=== PATIENT | female | born 1945 | race Caucasian/White ===

== ENCOUNTER → 2016-09-24 | Outpatient (CLI) | payer MEDICARE | END | disposition home or self-care (01) | LOC: GMAJ 10:32 | PROVIDERS: ATTEND Family Medicine | DX: E03.9 Hypothyroidism, unspecified (principal) ==

== ENCOUNTER 2016-11-23 06:01 | Emergency (ER) | payer MEDICARE ==
[2016-11-23 06:10] VITALS: TEMP 98.1
--- NOTE | 2016-11-23 06:38 | ED.PDOC ---
History of Present Illness - General Source: patient Exam Limitations: no limitations - History of Present Illness Initial Comments: Ms. Aylin Pearson 71 y/o female stated while in bed this am just woke up she experienced dizziness felt her bed spinning around no tinnitus but with left earache.Has history of cad.No blurry vision.No history of head injury. Stated had shingles in the past. Timing/Duration: 1-3 hours Severity: moderate Improving Factors: nothing Worsening Factors: nothing Associated Symptoms: denies symptoms, other - felt nauseated but no throwing up <Jose C Tyson R - Last Filed: 11/23/16 06:35> <Jose Quiroz - Last Filed: 11/23/16 07:55> - General Chief Complaint: ENT Problem Stated Complaint: dizziness, nausea, left earache Time Seen by Provider: 11/23/16 06:35 - History of Present Illness Allergies/Adverse Reactions: Allergies Codeine Allergy (Verified 11/23/16 06:10) Meperidine [From Demerol HCl] Allergy (Verified 11/23/16 06:10) Morphine Allergy (Verified 11/23/16 06:10) Pt states "Causes me breathing problems" Propoxyphene [From Darvocet-N] Allergy (Verified 11/23/16 06:10) Home Medications: Ambulatory Orders Aspirin [Baby Aspirin] 81 mg PO QD 05/14/14 Atorvastatin Calcium [Lipitor] 40 mg PO BEDTIME 05/14/14 Clopidogrel Bisulfate [Plavix] 75 mg PO QD 05/14/14 Furosemide [Lasix] 20 mg PO DAILY 05/14/14 Levothyroxine Sodium [Synthroid] 88 mcg PO DAILY 05/14/14 Lisinopril 10 mg PO DAILY 05/14/14 Potassium Chloride [K-Tab] 20 meq PO BID 05/14/14 Meclizine HCl 25 mg PO Q6H PRN #30 tab 11/23/16 Ondansetron [Zofran Odt] 4 mg PO Q4H PRN #10 tab 11/23/16 predniSONE [Prednisone] 20 mg PO DAILY #3 tab 11/23/16 Review of Systems - Review of Systems Constitutional: States: no symptoms reported EENTM: States: see HPI, ear pain - left Respiratory: States: no symptoms reported Cardiology: States: no symptoms reported Gastrointestinal/Abdominal: States: no symptoms reported Genitourinary: States: no symptoms reported Musculoskeletal: States: no symptoms reported Skin: States: no symptoms reported Neurological: States: other - dizziness Endocrine: States: no symptoms reported Hematologic/Lymphatic: States: no symptoms reported <Jose C Tyson R - Last Filed: 11/23/16 06:35> Past Medical History (General) - Patient Medical History Hx Seizures: No Hx Stroke: No Hx Dementia: No Hx Asthma: No Hx of COPD: No Hx Cardiac Disorders: Yes Hx Congestive Heart Failure: No Hx Pacemaker: No Hx Hypertension: Yes Hx Thyroid Disease: Yes Hx Diabetes: No Hx Gastroesophageal Reflux: No Hx Renal Disease: No Hx Cancer: No Hx of HIV: No Hx Hepatitis C: No Hx MRSA: No Surgical History: cholecystectomy, other - hysterectomy,back,knee - Vaccination History Hx Tetanus, Diphtheria Vaccination: No Hx Influenza Vaccination: Yes Hx Pneumococcal Vaccination: Yes Immunizations Up to Date: No - Social History Hx Tobacco Use: No Hx Chewing Tobacco Use: No Hx Alcohol Use: No Hx Substance Use: No Hx Substance Use Treatment: No Hx Depression: No Feels Threatened In Home Enviroment: No Feels Threatened In a Relationship: No Hx Physical Abuse: No Hx Emotional Abuse: No Hx Suspected Abuse: No - Activities of Daily Living Patient Lives Alone: No - Grooming Ability: Independent Eating (Feeding) Ability: Independent Toileting Ability: Independent - Female History Patient is a Female of Child Bearing Age (10 -59 yrs old): No Patient : No <Jose C Tyson R - Last Filed: 11/23/16 06:35> Family Medical History - Family History Father Family History: Unknown Hx Cardiac Disease: Yes - dad-mi 81 y/o <Jose C Tyson R - Last Filed: 11/23/16 06:35> Physical Exam - Physical Exam General Appearance: Alert, No apparent distress, Other - speech fluent Eye Exam: bilateral normal Ears, Nose, Throat: hearing grossly normal, normal ENT inspection, normal pharynx Neck: non-tender, full range of motion, supple, normal inspection, other - no carotid bruits Respiratory: chest non-tender, lungs clear, normal breath sounds Cardiovascular/Chest: normal peripheral pulses, regular rate, rhythm, no edema, no gallop, no JVD, no murmur Peripheral Pulses: radial,right: 2+, radial,left: 2+ Gastrointestinal/Abdominal: normal bowel sounds, non tender, soft, no organomegaly Back Exam: normal inspection, no CVA tenderness, no vertebral tenderness Extremity: normal range of motion, non-tender, normal inspection, no calf tenderness Neurologic: no motor/sensory deficits, alert, normal mood/affect, oriented x 3, other - no nystagmus Skin Exam: normal color, warm/dry Lymphatic: no adenopathy <Jose C Tyson R - Last Filed: 11/23/16 06:35> Progress - Progress Progress: 11/23/16 07:48 the patient is a 71-year-old female presenting to the emergency room after an episode of vertigo that appears to be due to an acute vestibular syndrome. Head CT shows nothing concerning for an acute stroke. HINTS exam is indicative of vestibular syndrome. The patient has received a dose of steroids and an antihistamine. The patient will be written for 3 days of oral prednisone along with a prescription for as needed meclizine for the dizziness and Zofran for nausea. She needs to keep well-hydrated. She needs to ambulate carefully. She does appear to have chronic allergies so taking something along the lines of a Zyrtec daily may help to reduce her inner ear dysfunction in the long-term. ER warnings were given. She needs to follow-up with her primary care doctor towards the latter part of the week. I recommend that she not drive for the next day or 2 in case she does have another true vertigo episode. Additionally the patient did have some incidental hypokalemia and was given a dose of potassium chloride elixir. This needs to be followed up with her primary care doctor. 11/23/16 07:53 - Results/Orders Results/Orders: head CT shows no acute definitive changes. There are chronic microvascular changes. Laboratory Tests 11/23/16 06:44 WBC 5.8 RBC 4.86 Hgb 14.2 Hct 43.2 MCV 89.0 MCH 29.2 MCHC 32.8 L RDW 15.2 H Plt Count 227 MPV 8.0 Absolute Neuts (auto) 4.20 Absolute Lymphs (auto) 1.00 Absolute Monos (auto) 0.30 Absolute Eos (auto) 0.10 Absolute Basos (auto) 0.10 Neutrophils % 73.0 Lymphocytes % 17.8 L Monocytes % 6.0 Eosinophils % 2.2 Basophils % 1.0 PT 10.9 INR 0.960 PTT (SP) 29.4 Sodium 141 Potassium 3.2 L Chloride 104 Carbon Dioxide 30 Anion Gap 10.2 L BUN 12 Creatinine 0.82 BUN/Creatinine Ratio 14.6 Random Glucose 93 Serum Osmolality 280.7 Calcium 8.6 Magnesium 2.2 Total Bilirubin 0.7 AST 17 ALT 12 Alkaline Phosphatase 101 Creatine Kinase 69 CK-MB (CK-2) 1.5 CK-MB (CK-2) % Not Reportable Troponin I < 0.02 Serum Total Protein 7.3 Albumin 3.9 Globulin 3.4 Albumin/Globulin Ratio 1.1 The patient's EKG shows a normal sinus rhythm. There is a left axis deviation. She does have what appears to be old Q waves in leads 2, 3 and aVF as well as V4 through V6. She does show a mild right bundle-branch block. There are some mild T-wave inversions in her anterior leads. <Jose Quiroz L - Last Filed: 11/23/16 07:55> Departure <Jose C Tyson - Last Filed: 11/23/16 06:35> - Departure Diet: regular diet Activity: increase activity as tolerated <Jose Quiroz L - Last Filed: 11/23/16 07:55> - Departure Clinical Impression: Hypokalemia Vertiginous syndrome and labyrinthine disorder Qualifiers: Laterality: left Qualifier Code: (H81.92) Unspecified disorder of vestibular function, left ear Disposition: Discharge to Home or Self Care Condition: Fair Departure Forms: ED Discharge - Pt. Copy, Patient Portal Self Enrollment Instructions: DI for Vertigo Referrals: Adam Escamilla MD [Primary Care Provider] - 1-5 Days Prescriptions: Meclizine HCl 25 mg PO Q6H PRN #30 tab PRN Reason: Dizziness predniSONE [Prednisone] 20 mg PO DAILY #3 tab Ondansetron [Zofran Odt] 4 mg PO Q4H PRN #10 tab PRN Reason: Vomiting Home Medications: Ambulatory Orders Aspirin [Baby Aspirin] 81 mg PO QD 05/14/14 Atorvastatin Calcium [Lipitor] 40 mg PO BEDTIME 05/14/14 Clopidogrel Bisulfate [Plavix] 75 mg PO QD 05/14/14 Furosemide [Lasix] 20 mg PO DAILY 05/14/14 Levothyroxine Sodium [Synthroid] 88 mcg PO DAILY 05/14/14 Lisinopril 10 mg PO DAILY 05/14/14 Potassium Chloride [K-Tab] 20 meq PO BID 05/14/14 Meclizine HCl 25 mg PO Q6H PRN #30 tab 11/23/16 Ondansetron [Zofran Odt] 4 mg PO Q4H PRN #10 tab 11/23/16 predniSONE [Prednisone] 20 mg PO DAILY #3 tab 11/23/16 Additional Instructions: the patient is a 71-year-old female presenting to the emergency room after an episode of vertigo that appears to be due to an acute vestibular syndrome. Head CT shows nothing concerning for an acute stroke. HINTS exam is indicative of vestibular syndrome. The patient has received a dose of steroids and an antihistamine. The patient will be written for 3 days of oral prednisone along with a prescription for as needed meclizine for the dizziness and Zofran for nausea. She needs to keep well-hydrated. She needs to ambulate carefully. She does appear to have chronic allergies so taking something along the lines of a Zyrtec daily may help to reduce her inner ear dysfunction in the long-term. ER warnings were given. She needs to follow-up with her primary care doctor towards the latter part of the week. I recommend that she not drive for the next day or 2 in case she does have another true vertigo episode. Additionally the patient did have some incidental hypokalemia and was given a dose of potassium chloride elixir. This needs to be followed up with her primary care doctor.
[2016-11-23] MEDS ORDERED: DEXAMETHASONE INJ 4 MG/ML VIAL IV ONE (06:46)
[2016-11-23] MEDS ORDERED: PROCHLORPERAZINE INJ 10 MG/2 ML VIAL IV ONE (06:46)
--- NOTE | 2016-11-23 07:18 | CT ---
EXAM DESCRIPTION: Head CLINICAL HISTORY: 71 years,Female,headache/dizziness COMPARISON: March 21, 2016 TECHNIQUE: Multiple axial helical tomographic images were obtained of the head. FINDINGS: There are no abnormal extra-axial fluid collections or mass effect. The hernández-white matter differentiation and sulcation mild decreased attenuation in the periventricular white matter. The ventricles are unremarkable. The included bony calvarium is unremarkable.The paranasal sinuses are unremarkable. The mastoid air cells are unremarkable. IMPRESSION: Mild periventricular chronic ischemic changes stable no acute findings. Electronically signed by: Elder Galvez MD 11/23/2016 7:18 AM CDT
[2016-11-23 07:24] VITALS: BP 121/82; O2SAT 94
[2016-11-23] MEDS ORDERED: POTASSIUM CHLORIDE ELIXIR 20 MEQ/15 ML UD PO ONE (07:27)
[2016-11-23] MEDS ORDERED: MECLIZINE HCL 12.5 MG TAB PO ONE (07:27)
== END 2016-11-23 08:16 | disposition home or self-care (01) ==
LOC: ER 06:01
DX: H81.92 Unspecified disorder of vestibular function, left ear (principal); E87.6 Hypokalemia; I10 Essential (primary) hypertension; E07.9 Disorder of thyroid, unspecified; Z79.82 Long term (current) use of aspirin; Z79.899 Other long term (current) drug therapy; Z88.6 Allergy status to analgesic agent; Z88.8 Allergy status to other drugs, medicaments and biological substances
CPT/HCPCS: 70450; 80048; 80053; 82550; 82553; 84484; 85025; 85610; 85730; 93005; J0780; J1100

== ENCOUNTER → 2017-09-14 | Outpatient (CLI) | payer MEDICARE | LOC: GMAJ 10:29 | PROVIDERS: ATTEND Family Medicine | DX: E03.9 Hypothyroidism, unspecified (principal) ==

== ENCOUNTER → 2017-10-28 | Outpatient (CLI) | payer MEDICARE | LOC: GMAJ 14:23 | PROVIDERS: ATTEND Family Medicine | DX: R06.02 Shortness of breath (principal); I10 Essential (primary) hypertension; R60.0 Localized edema; R25.2 Cramp and spasm ==

== ENCOUNTER 2018-05-06 16:39 | Emergency (ER) | payer MEDICARE ==
[2018-05-06] MEDS ORDERED: NITROGLYCERIN 0.4 MG 25 EA TAB SL ONE (16:42)
[2018-05-06] MEDS ORDERED: ONDANSETRON INJ 4 MG/2 ML VIAL IV ONE (16:42)
[2018-05-06] MEDS ORDERED: ASPIRIN TABLET 325 MG TAB PO ONE (16:42)
--- NOTE | 2018-05-06 16:57 | ED.PDOC ---
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 Has had these episodes in past but have not lasted this long Pt performed Valsalva maneuver in ED with cardioversion to NSR Timing/Duration: 1 hour Severity: mild Location: substernal Activities at Onset: rest Prior Chest Pain/Cardiac Workup: cardiac cath, heart attack Improving Factors: nothing Worsening Factors: nothing Nitro Today/Relief: no nitro taken today Aspirin Treatment Today: provided at home Associated Symptoms: chest pain, shortness of breath Allergies/Adverse Reactions: Allergies Codeine Allergy (Verified 05/06/18 17:00) Meperidine [From Demerol HCl] Allergy (Verified 05/06/18 17:00) Morphine Allergy (Verified 05/06/18 17:00) Pt states "Causes me breathing problems" Propoxyphene [From Darvocet-N] Allergy (Verified 05/06/18 17:00) Home Medications: Ambulatory Orders Aspirin [Baby Aspirin] 81 mg PO QD 05/14/14 Atorvastatin Calcium [Lipitor] 40 mg PO BEDTIME 05/14/14 Clopidogrel Bisulfate [Plavix] 75 mg PO QD 05/14/14 Furosemide [Lasix] 20 mg PO DAILY 05/14/14 Levothyroxine Sodium [Synthroid] 88 mcg PO DAILY 05/14/14 Lisinopril 10 mg PO DAILY 05/14/14 Potassium Chloride [K-Tab] 20 meq PO BID 05/14/14 Meclizine HCl 25 mg PO Q6H PRN #30 tab 11/23/16 Ondansetron [Zofran Odt] 4 mg PO Q4H PRN #10 tab 11/23/16 predniSONE [Prednisone] 20 mg PO DAILY #3 tab 11/23/16 Review of Systems - Review of Systems Constitutional: Denies: diaphoresis, fever, weakness EENTM: States: no symptoms reported Respiratory: States: short of breath. Denies: cough, wheezing Cardiology: States: chest pain. Denies: syncope Gastrointestinal/Abdominal: Denies: nausea, vomiting Genitourinary: States: no symptoms reported Musculoskeletal: States: no symptoms reported Skin: States: no symptoms reported Neurological: States: no symptoms reported Endocrine: States: no symptoms reported Hematologic/Lymphatic: States: no symptoms reported Past Medical History (General) - Patient Medical History Hx Seizures: No Hx Stroke: No Hx Dementia: No Hx Asthma: No Hx of COPD: No Hx Cardiac Disorders: Yes Hx Congestive Heart Failure: No Hx Pacemaker: No Hx Hypertension: Yes Hx Thyroid Disease: Yes Hx Diabetes: No Hx Gastroesophageal Reflux: No Hx Renal Disease: No Hx Cancer: No Hx of HIV: No Hx Hepatitis C: No Hx MRSA: No - Vaccination History Hx Tetanus, Diphtheria Vaccination: No Hx Influenza Vaccination: Yes Hx Pneumococcal Vaccination: Yes - Social History Hx Tobacco Use: No Hx Chewing Tobacco Use: No Hx Alcohol Use: No Hx Substance Use: No Hx Substance Use Treatment: No Hx Depression: No Hx Physical Abuse: No Hx Emotional Abuse: No Hx Suspected Abuse: No - Female History Patient : No Family Medical History - Family History Father Family History: Unknown Hx Cardiac Disease: Yes - dad-mi 81 y/o Physical Exam - Physical Exam General Appearance: Alert, Anxious Eyes, Ears, Nose, Throat Exam: PERRL/EOMI, TMs normal, pharynx normal - dry mucosa Neck: non-tender, full range of motion Respiratory: chest non-tender, lungs clear, normal breath sounds Cardiovascular/Chest: normal peripheral pulses, regular rate, rhythm, no edema Gastrointestinal/Abdominal: normal bowel sounds, soft, tenderness - mild , diffuse Extremity: normal range of motion, non-tender, normal inspection, no pedal edema 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 Copy, Patient Portal Self Enrollment Instructions: DI for Chest Pain Referrals: Adam Escamilla MD [Primary Care Provider] - 1-2 Weeks Home Medications: Ambulatory Orders Aspirin [Baby Aspirin] 81 mg PO QD 05/14/14 Atorvastatin Calcium [Lipitor] 40 mg PO BEDTIME 05/14/14 Clopidogrel Bisulfate [Plavix] 75 mg PO QD 05/14/14 Furosemide [Lasix] 20 mg PO DAILY 05/14/14 Levothyroxine Sodium [Synthroid] 88 mcg PO DAILY 05/14/14 Lisinopril 10 mg PO DAILY 05/14/14 Potassium Chloride [K-Tab] 20 meq PO BID 05/14/14 Meclizine HCl 25 mg PO Q6H PRN #30 tab 11/23/16 Ondansetron [Zofran Odt] 4 mg PO Q4H PRN #10 tab 11/23/16 predniSONE [Prednisone] 20 mg PO DAILY #3 tab 11/23/16
[2018-05-06 16:59] VITALS: TEMP 99.4
--- NOTE | 2018-05-06 17:30 | RAD ---
EXAM DESCRIPTION: Chest,1 View CLINICAL HISTORY: chest pain COMPARISON: Chest radiograph dated November 10, 2013 FINDINGS: Redemonstration of calcific atherosclerosis and mild tortuosity of thoracic aorta. Redemonstration of stable cardiomegaly. Pulmonary vascularity is within normal limits. Minimal opacity in the left retrocardiac region most likely representing subsegmental atelectasis. Otherwise, lungs are clear without definite focal consolidative infiltrates. Costophrenic angles are sharp. No pneumothorax. Visualized osseous structures show no destructive lesions. IMPRESSION: 1. Stable borderline cardiomegaly without congestive heart failure. 2. More subsegmental atelectasis in the left retrocardiac region. Otherwise, lungs are clear without definite focal consolidative infiltrates. Electronically signed by: Elder Singh MD 05/06/2018 5:28 PM CDT
[2018-05-06 18:03] VITALS: O2SAT 94
[2018-05-06 18:49] VITALS: BP 100/67
== END 2018-05-06 18:48 | disposition home or self-care (01) ==
LOC: ER 16:39
DX: I47.1 Supraventricular tachycardia (principal); I49.3 Ventricular premature depolarization; I10 Essential (primary) hypertension; E07.9 Disorder of thyroid, unspecified; Z79.82 Long term (current) use of aspirin; Z79.899 Other long term (current) drug therapy; Z88.5 Allergy status to narcotic agent; Z88.8 Allergy status to other drugs, medicaments and biological substances

== ENCOUNTER → 2018-05-12 | Outpatient (CLI) | payer MEDICARE ==
--- NOTE | 2018-05-12 17:37 | CT ---
EXAM DESCRIPTION: CTA Runoff: Computed Tomography. CLINICAL HISTORY: CLAUDICATION right toe. COMPARISON: None. TECHNIQUE: CT angiography of the abdominal aorta and both lower extremities is performed during rapid bolus administration of IV contrast media. Three-dimensional volume-rendering imaging is reviewed along with 2.5 x 2.5 mm post IV contrast source images, and 2.0 mm coronal and sagittal reformats. Total Exam DLP: Less than 1936 mGy-cm. This exam was performed according to our departmental CT dose-optimization program which includes automated exposure control, adjustment of the mA and/or kV according to patient size and/or use of iterative reconstruction technique; to reduce radiation dose to as low as reasonably achievable (ALARA). FINDINGS: Upper abdominal aorta: Minimal atherosclerotic calcification. Atherosclerotic calcification of the ostia of the celiac axis and SMA with irregular calcification and intimal wall thickening of the proximal segment of the SMA. Approximately 50% diameter stenosis 2 cm from the origin. No poststenotic dilation. Intimal wall thickening extends to the first bifurcation. Mid-abdominal aorta: Moderate calcification of the bilateral ostia of the single renal arteries. No poststenotic dilation. Distal abdominal aorta: The infrarenal aorta contains moderate calcification and intimal wall thickening. Calcification in the ostia of the RAMSES which contains contrast and no poststenotic dilation. Diameter of the inner lumen of the aorta is 10 x 8.4 mm just above the bifurcation. Common iliacs: Moderate calcification of the bilateral proximal vessels but less than 1 cm diameter. Internal iliacs: Calcification of the bilateral bifurcations more on the left than the right with irregular atherosclerotic narrowing. Bilateral EIAs: Minimal calcification proximally but lumen otherwise unremarkable. Bilateral LOCKSTITCH HEMMER's minimal atherosclerotic calcification with no significant luminal abnormality. Bilateral SFAs minimal atherosclerotic calcification bilaterally more left than right. No significant luminal narrowing or dilation. Right popliteal: Proximal caliber unremarkable distally obscured by right total knee arthroplasty. Right trifurcation vessels: Proximal JAIME good Caliber but decreases in size with fair to poor runoff into the dorsalis pedis. Right posterior tibial artery fair proximally, and poor flow distally and occluded several centimeters above the tibial plafond. Peroneal artery persists to the distal tibiofibular abutment, with good flow and re-constitutes the SENIOR SALES ASSOCIATE just above the ankle mortise with good runoff into the posterior ankle. Left popliteal: Minimal calcification otherwise unremarkable. Left trifurcation vessels: Minimal calcification at the origin of the JAIME initially good flow in the JAIME which decreases distally and is occluded above the level of the distal abutment of tibia and fibula. No reconstitution or collateral flow to the dorsalis pedis. Peroneal artery persists to the level of the distal tibiofibular abutment and reconstitutes the posterior tibial artery at the ankle mortise with fair flow into the posterior ankle. The proximal JAIME is occluded at approximately the same level as the SENIOR SALES ASSOCIATE, Other: Minimal scarring bilateral lung bases. Fatty infiltration of the liver. Prior cholecystectomy. No free fluid or free air in the abdomen or pelvis. Proximal fecal constipation. Bone spondylosis in the lumbar spine. Prior hernia repair right anterior abdominal wall below the level of the tip of the liver. IMPRESSION: 1. 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 No evidence of ischemic bowel disease at this time. No significant stenosis in the ostia of the major branch vessels originating from the aorta. Narrowing distally above the bifurcation. 2. Bilateral Distal right PTAs occluded, but reconstituted from persistent peroneal arteries bilaterally with good to fair flow into the posterior ankles. 3. Occlusion of the distal left JAIME at the same level as the distal left SENIOR SALES ASSOCIATE with no reconstitution of, or collateral flow into the left dorsalis pedis artery. Electronically signed by: Kenroy Sellers MD 05/12/2018 5:36 PM CDT
== END ==
LOC: CT 08:54
PROVIDERS: ATTEND Family Medicine
DX: I70.211 Atherosclerosis of native arteries of extremities with intermittent claudication, right leg (principal)

== ENCOUNTER → 2018-09-23 | Outpatient (CLI) | payer MEDICARE | LOC: GMAJ 10:33 | PROVIDERS: ATTEND Family Medicine | DX: E03.9 Hypothyroidism, unspecified (principal) ==

== ENCOUNTER → 2019-01-23 | Outpatient (CLI) | payer MEDICARE | LOC: GMAJ 10:37 | PROVIDERS: ATTEND Family Medicine | DX: E03.9 Hypothyroidism, unspecified (principal); I10 Essential (primary) hypertension; E78.00 Pure hypercholesterolemia, unspecified ==

== ENCOUNTER → 2020-01-22 | Outpatient (CLI) | payer MEDICARE | LOC: GMAJ 11:35 | PROVIDERS: ATTEND Family Medicine | DX: E03.9 Hypothyroidism, unspecified (principal) ==